=== PATIENT | male | born 1985 ===

== ENCOUNTER → 2022-05-08 | Outpatient (CLI) | payer SELFPAY ==
[~2022-05-08] MED LIST: ALBU17AE23 IH; ALPR1TAB72 PO; PRX10T PO; TRAZ150T42 PO
--- NOTE | 2022-05-08 11:05 | Diagnostic Imaging Report ---
CLINICAL INDICATION: Patient with cervical adenopathy. EXAM: Focused ultrasound of the left neck with the right neck ultrasound for comparison. COMPARISON: None. FINDINGS AND IMPRESSION: 1: There are multiple benign-appearing lymph nodes involving the right neck region, which demonstrate fatty hilum and slender configuration. The largest three lymph nodes measure 2.5 cm x 0.6 cm x 2.1 cm, 1.9 cm x 0.9 cm x 1.1 cm, and 2.5 cm x 0.7 cm x 1.4 cm. 2: Left neck shows no significant abnormality. Dictated by: Dictated on workstation # [id number]
== END ==
LOC: RAD 09:33
PROVIDERS: ATTEND Student in an Organized Health Care Education/Training Program
DX: R59.0 Localized enlarged lymph nodes (principal)
CPT/HCPCS: 76536